=== PATIENT | female | born 1995 | race African-American/Black ===

== ENCOUNTER 2017-03-16 11:14 | Emergency (ER) | payer MEDICAID ==
[~2017-03-16] VITALS: Ht 154.9 cm; Wt 66.0 kg
[2017-03-16] MEDS ORDERED: KETOROLAC 60MG/2ML VIAL IM STA (14:34)
[2017-03-16 15:25] LABS: BASOPHILS % 0.4 % (0.0-2.0); EOSINOPHILS % 0.6 % (0.0-5.0); HEMATOCRIT. 40.5 % (36.0-48.0); HEMOGLOBIN. 13.2 g/dL (12.0-16.0); MEAN CORPUSCULAR HEMOGLOBIN 24.9 pg (28.0-32.0); MEAN CORPUSCULAR VOLUME 76.4 fL (81.0-99.0); MEAN PLATELET VOLUME 8.8 fl (7.4-10.4); MONOCYTES % 10.5 % (2.0-8.0); NEUTROPHILS % 61.5 % (40.0-76.0); PLATELET 276 x1000/uL (130-400); RED BLOOD CELL COUNT 5.31 mill/uL (4.2-5.4)
[2017-03-16 15:35] LABS: CARBON DIOXIDE 25 mEq/L (21-32); CHLORIDE 108 mEq/L (98-107)
[2017-03-16 17:00] VITALS: BP 110/65
[2017-03-16 17:57] LABS: CLARITY URINE CLEAR (CLEAR); COLOR URINE YELLOW (YELLOW); GLUCOSE URINE NEGATIVE (NEGATIVE); KETONES URINE NEGATIVE (NEGATIVE); LEUKOCYTE ESTERASE URINE 1+ (NEGATIVE); NITRITE URINE NEGATIVE (NEGATIVE); OCCULT BLOOD URINE NEGATIVE (NEGATIVE); PH URINE 6.5 (4.5-8.0); PROTEIN URINE NEGATIVE (NEGATIVE); SPECIFIC GRAVITY URINE 1.022 (1.005-1.030)
== END 2017-03-16 18:52 | disposition home or self-care (01) ==
LOC: ER 15:32
DX: N39.0 Urinary tract infection, site not specified (principal); Z87.19 Personal history of other diseases of the digestive system
CPT/HCPCS: 36415; 80053; 81001; 81025; 85025; 96372; 99284; J1885

== ENCOUNTER 2021-08-03 19:54 | Emergency (ER) | payer OTHER, MEDICAID ==
[~2021-08-03] VITALS: Ht 157.5 cm; Wt 71.0 kg
[2021-08-04] MEDS ORDERED: IBUPROFEN 600MG TABLET PO ONE
[2021-08-04] MEDS ORDERED: IBUP-2028 MT (01:44)
[2021-08-04 02:47] VITALS: BP 120/67
== END 2021-08-04 02:48 | disposition home or self-care (01) ==
LOC: ER 19:54
DX: M25.562 Pain in left knee (principal); K21.9 Gastro-esophageal reflux disease without esophagitis
CPT/HCPCS: 73562; 73590; 81025; 99284; L1830

== ENCOUNTER 2023-06-16 17:27 | Emergency (ER) | payer MEDICAID, OTHER ==
[~2023-06-16] VITALS: Ht 157.5 cm; Wt 80.0 kg
[~2023-06-16 17:27] MED LIST: IBUP-2028 MT
[2023-06-16 17:35] VITALS: BP 117/83; O2SAT 100
[2023-06-16] MEDS ORDERED: PSEU120T56 MT (20:42)
[2023-06-16 20:55] VITALS: PULSE 75; RESP 18; TEMP 98.3
== END 2023-06-16 20:58 | disposition home or self-care (01) ==
LOC: ER 17:27
DX: B34.9 Viral infection, unspecified (principal); K21.9 Gastro-esophageal reflux disease without esophagitis
CPT/HCPCS: 71045; 81025; 99283

== ENCOUNTER 2023-06-28 09:41 | Emergency (ER) | payer OTHER ==
[~2023-06-28] VITALS: Ht 154.9 cm; Wt 63.0 kg
[~2023-06-28 09:41] MED LIST changes: +PSEU120T56 MT
[2023-06-28] MEDS ORDERED: ALBUTEROL (0.083%) 2.5MG/3ML NEB HHN ONE (10:30)
[2023-06-28 11:10] VITALS: PULSE 110; RESP 20; O2SAT 99
[2023-06-28 12:02] VITALS: BP 122/72; PULSE 95; RESP 18; TEMP 98.2
== END 2023-06-28 12:04 | disposition home or self-care (01) ==
LOC: ER 09:41
DX: R09.81 Nasal congestion (principal); R05.9 Cough, unspecified; K21.9 Gastro-esophageal reflux disease without esophagitis
CPT/HCPCS: 81025; 71045; 94664; 94640; 99283; Z7610 ×3

== ENCOUNTER 2023-10-04 20:40 | Emergency (ER) | payer OTHER ==
[~2023-10-04] VITALS: Ht 154.9 cm; Wt 71.0 kg
[2023-10-04 21:01] VITALS: O2SAT 100
[2023-10-04] MEDS ORDERED: AMOX-494 MT (22:26)
[2023-10-04] MEDS: DEXAMETHASONE 10 MG/ML VIAL PO ONE (22:40)
[2023-10-04] MEDS: KETOROLAC 60MG/2ML VIAL IM ONE (22:43)
[2023-10-04 22:55] VITALS: BP 106/72; PULSE 80; RESP 18; TEMP 98.1
== END 2023-10-04 22:59 | disposition home or self-care (01) ==
LOC: ER 21:22
DX: J02.0 Streptococcal pharyngitis (principal); K21.9 Gastro-esophageal reflux disease without esophagitis; Z20.822 Contact with and (suspected) exposure to COVID-19
CPT/HCPCS: 99283; 87426; 81025; 87430; 96372; J1100; J1885

== ENCOUNTER 2024-05-19 19:11 | Emergency (ER) | payer MEDICAID ==
[~2024-05-19] VITALS: Ht 154.9 cm; Wt 74.7 kg
[~2024-05-19 19:11] MED LIST changes: +AMOX-494 MT
[2024-05-19 19:16] VITALS: O2SAT 99
[2024-05-19 21:51] VITALS: BP 120/61; PULSE 88; RESP 18; TEMP 37.05852; O2SAT 99
[2024-05-19] MEDS: ACETAMINOPHEN 325MG TABLET PO ONE (21:51)
== END 2024-05-19 21:52 | disposition home or self-care (01) ==
LOC: ER 19:11
DX: J02.8 Acute pharyngitis due to other specified organisms (principal); B97.89 Other viral agents as the cause of diseases classified elsewhere
CPT/HCPCS: 87070; 87430; 99283

== ENCOUNTER 2025-02-24 14:02 | Emergency (ER) | payer MEDICAID ==
[~2025-02-24] VITALS: Ht 165.1 cm; Wt 74.0 kg
[2025-02-24 14:05] VITALS: O2SAT 100
[2025-02-24 14:55] LABS: BASOPHILS % 0.9 % (0.0-2.0); EOSINOPHILS % 0.6 % (0.0-5.0); HEMATOCRIT. 38.5 % (36.0-48.0); HEMOGLOBIN. 12.6 g/dL (12.0-16.0); LYMPHOCYTES % 28.0 % (20.0-50.0); MEAN PLATELET VOLUME 8.3 fl (7.4-10.4); MONOCYTES % 5.9 % (2.0-8.0); NEUTROPHILS % 64.6 % (40.0-76.0); PLATELET 288 x1000/uL (130-400); RED BLOOD CELL COUNT 5.04 mill/uL (4.2-5.4); RED CELL DISTRIBUTION WIDTH 14.2 % (11.6-14.6)
[2025-02-24 15:31] LABS: CREATININE 0.9 mg/dL (0.6-1.0); TROPONIN I HIGH SENSITIVITY < 4 ng/L (3.0-34); UREA NITROGEN BLOOD 7 mg/dL (9-23)
[2025-02-24 15:54] LABS: HCG SCREEN NEGATIVE
[2025-02-24 16:10] VITALS: BP 108/85; PULSE 75; RESP 16; TEMP 37.2; O2SAT 98
== END 2025-02-24 16:22 | disposition home or self-care (01) ==
LOC: ER 14:02 → EDBEDREQ 14:30 → CANBEDREQ 15:58 → ER 16:22
DX: R00.2 Palpitations (principal); Z79.899 Other long term (current) drug therapy; Z98.890 Other specified postprocedural states
CPT/HCPCS: 36415; 71045; 80048; 84484; 84703; 85025; 93005; 99285